=== PATIENT | female | born 1955 | race Hispanic/Latino ===

== ENCOUNTER → 2016-07-30 | Outpatient (CLI) | payer OTHER | END | disposition home or self-care (01) | LOC: GMAB 10:11 | PROVIDERS: ATTEND Family Medicine | DX: M79.609 Pain in unspecified limb (principal); R07.2 Precordial pain ==

== ENCOUNTER → 2016-08-05 | Outpatient (CLI) | payer OTHER | LOC: RESP 16:27 | PROVIDERS: ATTEND Family Medicine | DX: R00.2 Palpitations (principal) ==

== ENCOUNTER → 2017-03-10 | Outpatient (CLI) | payer OTHER ==
--- NOTE | 2017-03-12 13:43 | MAM ---
EXAM DESCRIPTION: 3D Screening BILATERAL : Digital Mammography. CLINICAL HISTORY: 61 years Female SCREENING . No complaints. Sister with breast cancer. Postmenopausal. Prior biopsy left breast. Taking HRT. COMPARISON: 2-D digital screening bilateral studies 03/30/2014 and 05/17/2012. Reports from prior examinations also reviewed. TECHNIQUE: Bilateral CC and MLO projection full-field images, 3-D tomosynthesis digital mammographic technique. Also bilateral synthesized CC/ MLO full-field images. CAD not utilized. FINDINGS: The breast parenchymal density pattern is: Scattered areas of fibroglandular density. No skin thickening or nipple retraction bilateral solitary microcalcifications. Bilateral axillary lymph nodes. Bilateral stable intramammary lymph nodes. Biopsy site marker in the lower inner quadrant of the anterior third of the left breast.. No focal, stellate mass or density, focal asymmetry , and no suspicious microcalcifications bilaterally. Stable mammograms compared to prior study, taking into account differences in mammographic technique IMPRESSION: BI-RADS CATEGORY: 2 - BENIGN FINDINGS. FOLLOW UP: Routine digital bilateral screening, one year interval from February 2017. Written communication explaining the IMPRESSION and follow-up, will be mailed to the patient and referring health care provider. According to the [employer], yearly mammograms are recommended starting at age 40 and continuing as long as a woman is in good health. Any breast change noted on a breast self-exam should be reported promptly to the patient's healthcare provider. Breast MRI is recommended for women with an approximately 20-25% or greater lifetime risk of breast cancer, including women with a strong family history of breast or ovarian cancer and women who have been treated for Hodgkin's disease. A negative mammographic report should not delay tissue diagnosis in patients with significant clinical history or physical findings. Extremely dense breast tissue limits the sensitivity of digital mammography. Electronically signed by: Sonu Bess MD 03/12/2017 1:42 PM [facility] [employer] [employer]
== END ==
LOC: MAMMO 16:26
PROVIDERS: ATTEND Family Medicine
DX: Z12.31 Encounter for screening mammogram for malignant neoplasm of breast (principal)
CPT/HCPCS: 77063; G0202

== ENCOUNTER → 2017-06-23 | Outpatient (CLI) | payer OTHER | LOC: GMAB 17:57 | PROVIDERS: ATTEND Family Medicine | DX: D64.9 Anemia, unspecified (principal); E04.8 Other specified nontoxic goiter ==

== ENCOUNTER → 2018-09-27 | Outpatient (CLI) | payer BC | LOC: GMAE 10:43 | PROVIDERS: ATTEND Family Medicine | DX: Z00.01 Encounter for general adult medical examination with abnormal findings (principal) ==

== ENCOUNTER → 2019-09-23 | Outpatient (CLI) | payer BC | LOC: ECHO 08:57 | PROVIDERS: ATTEND Emergency Medicine | DX: R01.1 Cardiac murmur, unspecified (principal); I51.7 Cardiomegaly; I34.1 Nonrheumatic mitral (valve) prolapse ==

== ENCOUNTER → 2019-12-20 | Outpatient (CLI) | payer BC ==
--- NOTE | 2019-12-20 11:10 | RAD ---
EXAM DESCRIPTION: Hip,Right 2 Views CLINICAL HISTORY: SACROILIAC JOINT PAIN COMPARISON: None Available. TECHNIQUE: AP/frog leg lateral FINDINGS: Two views right hip demonstrate the hip joint well preserved. Minimal marginal osteophyte formation at the lateral acetabular rim noted. No osteonecrosis fracture or dislocations. Frog leg view demonstrates ossific hypertrophic change arising from the anterior margin of the greater trochanter consistent with dystrophic calcification from previous injury or possibly a benign osteochondroma. This area is approximately 1.5 x 2 cm in size and not well seen on the AP view. Impingement with movement of the hip should be considered. The appearance is benign but likely creates impingement with movement. Additionally there is a focal lucency in the right symphysis pubis which may be indicative of osteitis pubis. Questionable hypertrophic ossific density along the lateral aspect of the right iliac wing. Degenerative changes involving the SI joints incidentally noted. IMPRESSION: 1. No acute fracture or dislocation or severe hip degenerative arthropathy noted. 2. Exophytic calcific or ossific approximate 2 cm lesion arising from the anterior greater trochanter with questionable additional lesion involving the right iliac wing and a lucent 2 cm lesion in the right pubic ramus. These lesions are likely benign but further evaluation of the pelvis and right hip with MRI examination without and with contrast enhancement recommended for further evaluation. Electronically signed by: Orlando Mchugh MD 12/20/2019 11:08 AM CDT
== END | disposition home or self-care (01) ==
LOC: RAD 07:52
PROVIDERS: ATTEND Emergency Medicine
DX: M53.3 Sacrococcygeal disorders, not elsewhere classified (principal)

== ENCOUNTER → 2020-01-09 | Outpatient (CLI) | payer BC ==
--- NOTE | 2020-01-09 13:42 | MRI ---
Study: MRI of the Right Hip. Indication: DISORDER OF BONE Technique: Multiplanar, multi sequence MRI of the right hip was obtained with and without intravenous contrast. Comparison: Radiographs December 20, 2019. Findings: No aggressive mass lesion identified. No acute fracture or osteonecrosis. As noted on the prior radiographs there is prominent enthesophyte formation at the right gluteus minimus/medius tendon insertions on the greater trochanter with high-grade tendinosis as well as partial thickness tearing of both tendons. Moderate right greater trochanteric bursal edema/inflammation present. No complete tendon rupture. Less pronounced tendinosis and attenuation of the left gluteal tendon insertions with mild left greater trochanter bursal edema. Tendinosis bilateral hamstring tendon origins without acute fracture. Severe pubic symphysis osteoarthritis. Pronounced lower lumbar disk disease. Mild to moderate bilateral hip osteoarthritis. Degenerative tearing anterior superior right hip labrum. Previously noted osseous spurring of the right iliac wing is not included in the [id number]. Impression: No aggressive mass lesion of the right hip. High-grade tendinosis, attenuation, and partial thickness tearing of the right gluteal tendon insertions with associated greater trochanteric bursal edema as well as adjacent enthesophyte formation of the greater trochanter which accounts for the previously noted osseous spurring on radiographs. Additional findings as above. Electronically signed by: Yoel Perez MD 01/09/2020 1:39 PM CDT
== END ==
LOC: MRI 06:45
PROVIDERS: ATTEND Emergency Medicine
DX: M89.9 Disorder of bone, unspecified (principal); M76.01 Gluteal tendinitis, right hip; S76.311A Strain of muscle, fascia and tendon of the posterior muscle group at thigh level, right thigh, initial encounter; M16.0 Bilateral primary osteoarthritis of hip; M51.86 Other intervertebral disc disorders, lumbar region; R60.0 Localized edema

== ENCOUNTER → 2020-02-02 | Outpatient (CLI) | payer BC ==
--- NOTE | 2020-02-02 18:02 | RAD ---
EXAM DESCRIPTION: Pelvis CLINICAL HISTORY: 64 years Female, RIGHT HIP PAIN COMPARISON: January 09, 2020 Findings: One view(s)/radiograph(s) Mild to moderate bilateral hip osteoarthritis. No acute fracture or dislocation. No focal soft tissue swelling. Degenerative changes in the sacroiliac joints. Redemonstrated enthesophytes arising from the greater trochanters. IMPRESSION: No acute osseous abnormality in the pelvis. Electronically signed by: Lev Mckinney MD 02/02/2020 6:00 PM CDT
== END ==
LOC: RAD 08:00
PROVIDERS: ATTEND Orthopaedic Surgery
DX: M25.551 Pain in right hip (principal)